=== PATIENT | male | born 1985 | race Caucasian/White ===

== ENCOUNTER 2018-07-04 04:03 | Emergency (ER) | payer BC, OTHER ==
[~2018-07-04 04:03] MED LIST: IBU800 PO; NO ROUTINE MEDS; PER PO; SIL20T TOP
[2018-07-04 04:07] VITALS: BP 136/104
[2018-07-04] MEDS ORDERED: CYCL10TA29 PO (04:31)
[2018-07-04] MEDS ORDERED: OXYC-865 PO (04:31)
[2018-07-04] MEDS ORDERED: METH4TAB66 PO (04:31)
--- NOTE | 2018-07-04 04:33 | ER Report ---
History and Physical Time Seen By MD: 04:10 Hx. of Stated Complaint: patient states that his lower back is in pain due to a herniated disk; states that his right side hurts the most HPI/ROS CHIEF COMPLAINT: Low back pain HISTORY OF PRESENT ILLNESS: 33-year-old male presents ambulatory to the ER complaining of low back pain with radiation to right buttocks region. Patient has a known history of a herniated disc. Although he has never had any studies. He has a clinical diagnosis of herniated disc. He was treated back in October at urgent care with a Medrol Dosepak, Flexeril and a pain medication with improvement. He has no health insurance is unable to afford an MRI or CT scan. He's taking left over Percocet from a family member for temporary relief. He notes increased pain over the last 3 days. He notes no saddle anesthesia or incontinence. REVIEW OF SYSTEMS: Respiratory: No cough, no dyspnea. Cardiovascular: No chest pain, no palpitations. Gastrointestinal: No vomiting, no abdominal pain. Musculoskeletal: As above Allergies: Coded Allergies: No Known Allergies (Verified Allergy, Mild, 01/03/16) Home Meds Active Scripts Oxycodone Hcl/Acetaminophen (PERCOCET 5-325 MG TABLET) 1 Each Tablet, 1-2 EACH PO Q4-6H Y for PAIN, #15 Prov:BASIL KELLEY DO 07/04/18 Methylprednisolone (METHYLPREDNISOLONE) 4 Mg Tab.ds.pk, 4 MG PO DIRECTED for back pain/ nerve inflammation, #1 TAB Prov:BASIL KELLEY DO 07/04/18 Cyclobenzaprine Hcl (CYCLOBENZAPRINE HCL) 10 Mg Tablet, 10 MG PO TID Y for muscle spasm relief, #20 TAB TAKE 1 TABLET BY MOUTH THREE TIMES A DAY Prov:BASIL KELLEY DO 07/04/18 Reported Medications Silver Sulfadiazine (Silvadene 1%) 20 Gm Cr, 0 TOP BID APPLY TO AFFECTED AREA TWICE DAILY 05/26/08 Ibuprofen (Motrin) 800 Mg Tab, 800 MG PO TID, #21 0 Refills 1 TAB THREE TIMES DAILY WITH FOOD 05/26/08 Oxycodone/Acetaminophen (OXYCODONE/ACETAMINOPHEN 5MG/325 MG) 5 Mg/325 Mg Tab, 1 - 2 TAB PO Q4-6H, #30 1-2 TABS EVERY 4-6 HOURS NEEDED FOR PAIN 05/26/08 [No Routine Meds] No Conflict Check 05/26/08 Reviewed Nurses Notes: Yes Old Medical Records Reviewed: Yes Hx Smoking: No Smoking Status: Never Smoker Exposure to Second Hand Smoke?: No Hx Substance Use Disorder: No Hx Alcohol Use: Yes (3-4 beers per day) Constitutional Vital Sign - Last 24 Hours 07/04/18 07/04/18 07/04/18 07/04/18 04:07 04:07 04:33 04:43 Temp 98.5 Pulse 77 72 Resp 18 B/P (MAP) 136/104 (115) 136/104 141/88 (105) Pulse Ox 96 93 O2 Delivery Room Air Physical Exam General Appearance: The patient is alert, has no immediate need for airway protection and no current signs of toxicity. Moderate distress, vital signs stable, afebrile, pulse ox normal Eyes: Pupils equal and round no injection. Respiratory: Chest is non tender, lungs are clear to auscultation. Cardiac: regular rate and rhythm Gastrointestinal: Abdomen is soft and non tender, no masses, bowel sounds normal. Musculoskeletal: Neck: Neck is supple and non tender. Back: There is moderate tenderness in the left lumbar paraspinous musculature, the SI joint and along the course of the sciatic nerve in the right buttocks region. Patient has a positive straight leg raise at approximately 30. His lower extremity is neurovascularly intact. Extremities have full range of motion and are non tender. Skin: No rashes or lesions. DIFFERENTIAL DIAGNOSIS: After history and physical exam differential diagnosis was considered for back pain including but not limited to muscular pain, herniated disc, spine fracture, intra-abdominal causes and urinary tract infection. Medical Decision Making ED Course/Re-evaluation ED Course Patient was admitted to an examination room. H&P was done. The differential diagnoses was considered. On clinical examination. Patient has findings suggestive of right sciatica. His straight leg raise examination is equivocal. Patient's unable to afford outpatient MRI scan. Patient be treated with a Medrol Dosepak, Percocet and Flexeril. He is also advised to take ibuprofen 600 mg 3 times daily. He is advised to take all medications with food. Patient 's advised to follow-up with Dr. Grimaldo spinal surgeon if unimproved in 3-5 days. Decision to Disposition Date: Jul 04, 2018 Decision to Disposition Time: 04:29 Depart Departure Latest Vital Signs Vital Signs Date Time Temp Pulse Resp B/P (MAP) Pulse Ox O2 Delivery O2 Flow Rate FiO2 07/04/18 04:43 141/88 (105) 07/04/18 04:33 72 93 07/04/18 04:07 98.5 18 Room Air Impression: Primary Impression: Low back pain Additional Impression: Right sided sciatica Condition: Improved Disposition: HOME OR SELF-CARE Referrals: RENAY GRIMALDO MD New Scripts Oxycodone Hcl/Acetaminophen (PERCOCET 5-325 MG TABLET) 1 Each Tablet 1-2 EACH PO Q4-6H Y for PAIN, #15 Prov: BASIL KELLEY DO 07/04/18 Methylprednisolone (METHYLPREDNISOLONE) 4 Mg Tab.ds.pk 4 MG PO DIRECTED for back pain/ nerve inflammation, #1 TAB Prov: BASIL KELLEY DO 07/04/18 Cyclobenzaprine Hcl (CYCLOBENZAPRINE HCL) 10 Mg Tablet 10 MG PO TID Y for muscle spasm relief, #20 TAB TAKE 1 TABLET BY MOUTH THREE TIMES A DAY Prov: BASIL KELLEY DO 07/04/18 Patient Instructions: Acute Low Back Pain (ED) Additional Instructions: Take ibuprofen 200 mg 3-4 tablets 3 times a day with food Apply heating pad to your back Follow-up with primary care or Dr. Grimaldo for evaluation and referral for MRI Lumbar spine Problem Qualifiers Primary Impression: Low back pain Chronicity: acute Back pain laterality: right Sciatica presence: with sciatica Sciatica laterality: sciatica of right side Qualified Codes: M54.41 - Lumbago with sciatica, right side BASIL KELLEY DO Jul 04, 2018 04:33
[2018-07-04] MEDS ORDERED: HYDROmorphone 2 MG TAB TH 2 TAB/BOTTLE PO ONE (04:35)
[2018-07-04] MEDS ORDERED: CYCLOBENZAPRINE HCL 10 MG TH PO ONE (04:35)
[2018-07-04] MEDS ORDERED: DEXAMETHASONE 4 MG TAB PO ONE (04:35)
== END 2018-07-04 04:56 | disposition home or self-care (01) ==
LOC: ER 04:51
DX: M54.41 Lumbago with sciatica, right side (principal)
CPT/HCPCS: 99283; A9270; J8540